=== PATIENT | female | born 1980 | race Asian ===

== ENCOUNTER 2018-04-22 14:32 | Emergency (ER) | payer OTHER, BC ==
[2018-04-22] MEDS: IBUPROFEN 800 MG TAB PO (15:24)
== END 2018-04-22 16:00 | disposition home or self-care (01) ==
LOC: E/R 14:32
DX: F41.9 Anxiety disorder, unspecified (principal); M54.2 Cervicalgia
CPT/HCPCS: 99283; 99283-25